=== PATIENT | male | born 1960 | race Caucasian/White ===

== ENCOUNTER 2017-07-12 10:07 | Emergency (ER) | payer BC ==
[2017-07-12 10:35] VITALS: BMI 27.2
--- NOTE | 2017-07-12 11:05 | PDOC ---
History of Present Illness <Gurinder Amaro - Last Filed: 07/12/17 15:02> - General History Source: Patient Exam Limitations: No Limitations - History of Present Illness Initial Comments: 07/12/17 11:52 Patient is a 56 year old male with a significant past medical history of Diabetes who presents to the ED with complaints of left sided flank pain that began yesterday afternoon. Patient reported left sided flank pain began yesterday afternoon while at home and has not shown signs of subsiding. Patient states pain is a localized sharp pain that is rated a 7/10 in intensity. He reports pain increased this morning, stating he almost passed out from the pain . Patient states the pain is intermittent, and comes and goes every 2 to 3 hours. Patient reports intermittent episodes of sweating secondary to left sided flank pain. Denies diet change. No chest pain, SOB. Denies fever, chills. Denies dysuria, constipation, diarrhea. Denies any other symptoms. Allergies: Seasonal allergies Social history: smoker (2 cigarettes per day, 20 years). No alcohol. No illicit Drugs. Surgical history: none PMD: Dr. Cabezas <Al Hilton - Last Filed: 07/12/17 15:38> - General Chief Complaint: Pain, Acute Stated Complaint: LT SIDE/ABD PAIN Time Seen by Provider: 07/12/17 11:03 Past History - Past Medical History Asthma: No Cardiac Disorders: No Diabetes: Yes HTN: Yes Hypercholesterolemia: No Kidney Stones: No - Surgical History Abdominal Surgery: No - Immunization History Immunization Up to Date: Yes - Suicide/Smoking/Psychosocial Hx Smoking Status: Yes Smoking History: Former smoker Have you smoked in the past 12 months: Yes Number of Cigarettes Smoked Daily: 3 Information on smoking cessation initiated: No Hx Alcohol Use: No Drug/Substance Use Hx: No Substance Use Type: None <Gurinder Amaro - Last Filed: 07/12/17 15:02> <Al Hilton - Last Filed: 07/12/17 15:38> - Past Medical History Allergies/Adverse Reactions: Allergies Allergy/AdvReac Type Severity Reaction Status Date / Time No Known Allergies Allergy Verified 07/12/17 10:32 Home Medications: Ambulatory Orders Cyclobenzaprine HCl [Flexeril -] 10 mg PO TID 05/10/13 Enalapril Maleate [Vasotec -] 2.5 mg PO DAILY 05/10/13 Metformin HCl [Riomet] 500 mg PO DAILY 05/10/13 Naproxen [Naprosyn -] 500 mg PO BID 05/10/13 Tamsulosin HCl [Flomax] 0.4 mg PO DAILY #30 capsule 05/10/13 Ondansetron [Zofran *Odt*] 8 mg SL TID #21 od.tablet 07/12/17 Oxycodone HCl/Acetaminophen [Percocet 5-325 mg Tablet] 1 - 2 tab PO Q6H #20 tab MDD 6 07/12/17 Review of Systems - Review of Systems Able to Perform ROS?: Yes Comments:: 07/12/17 11:52 GENERAL/CONSTITUTIONAL: No fever or chills. No weakness. HEAD, EYES, EARS, NOSE AND THROAT: No change in vision. No ear pain or discharge. No sore throat. CARDIOVASCULAR: No chest pain or shortness of breath. RESPIRATORY: No cough, wheezing, or hemoptysis. GASTROINTESTINAL: No nausea, vomiting, diarrhea or constipation. GENITOURINARY: No dysuria, frequency, or change in urination. MUSCULOSKELETAL: +Left sided flank pain. No joint or muscle swelling. No neck or back pain. SKIN: No rash NEUROLOGIC: No headache, vertigo, loss of consciousness, or change in strength/ sensation. ENDOCRINE: No increased thirst. No abnormal weight change. HEMATOLOGIC/LYMPHATIC: No anemia, easy bleeding, or history of blood clots. ALLERGIC/IMMUNOLOGIC: No hives or skin allergy. All Other Systems: Reviewed and Negative <Al Hilton - Last Filed: 07/12/17 15:38> *Physical Exam - Vital Signs Last Vital Signs Temp Pulse Resp BP Pulse Ox 98.1 F 65 18 127/81 100 07/12/17 10:32 07/12/17 10:32 07/12/17 10:32 07/12/17 10:32 07/12/17 10:32 <Gurinder Amaro - Last Filed: 07/12/17 15:02> - Vital Signs Last Vital Signs Temp Pulse Resp BP Pulse Ox 98.1 F 65 18 127/81 100 07/12/17 10:32 07/12/17 10:32 07/12/17 10:32 07/12/17 10:32 07/12/17 10:32 - Physical Exam Comments: 07/12/17 11:52 GENERAL: Awake, alert, and fully oriented, in no acute distress HEAD: No signs of trauma EYES: PERRLA, EOMI, sclera anicteric, conjunctiva clear ENT: Auricles normal inspection, hearing grossly normal, nares patent, oropharynx clear without exudates. Moist mucosa NECK: Normal ROM, supple, no lymphadenopathy, JVD, or masses LUNGS: Breath sounds equal, clear to auscultation bilaterally. No wheezes, and no crackles HEART: Regular rate and rhythm, normal S1 and S2, no murmurs, rubs or gallops ABDOMEN: Soft, nontender, normoactive bowel sounds. No guarding, no rebound. No masses EXTREMITIES: Normal range of motion, no edema. No clubbing or cyanosis. No cords, erythema, or tenderness NEUROLOGICAL: Cranial nerves II through XII grossly intact. Normal speech, normal gait SKIN: Warm, Dry, normal turgor, no rashes or lesions noted. <Al Hilton - Last Filed: 07/12/17 15:38> ED Treatment Course - LABORATORY CBC & Chemistry Diagram: 07/12/17 11:50 07/12/17 11:50 <Gurinder Amaro - Last Filed: 07/12/17 15:02> - LABORATORY CBC & Chemistry Diagram: 07/12/17 11:50 07/12/17 11:50 <Al Hilton - Last Filed: 07/12/17 15:38> Medical Decision Making - Medical Decision Making 07/12/17 15:[address] Schwartz @14:52pm. Dr. Noble personal injury paralegal. Case discussed. <Al Hilton - Last Filed: 07/12/17 15:38> *DC/Admit/Observation/Transfer - Discharge Dispostion Admit: No - Attestations Physician Attestion: 07/12/17 11:05 I, Dr. Gurinder Amaro, attest that this document has been prepared under my direction and personally reviewed by me in its entirety. I further attest, that it accurately reflects all work, treatment, procedures and medical decision -making performed by me. <Gurinder Amaro - Last Filed: 07/12/17 15:02> - Attestations Scribe Attestion: 07/12/17 11:52 Documentation prepared by Al Hilton, acting as biomedical electronics technician for Gurinder Amaro MD/DO. <Al Hilton - Last Filed: 07/12/17 15:38> Diagnosis at time of Disposition: Kidney stone on left side - Discharge Dispostion Disposition: HOME Condition at time of disposition: Good - Prescriptions Prescriptions: Oxycodone HCl/Acetaminophen [Percocet 5-325 mg Tablet] 1 - 2 tab PO Q6H #20 tab MDD 6 Ondansetron [Zofran *Odt*] 8 mg SL TID #21 od.tablet - Referrals Referrals: Sushant Cabezas MD [Primary Care Provider] - Tin Noble MD [Staff Physician] - - Patient Instructions Printed Discharge Instructions: DI for Kidney Stones Additional Instructions: Mr Herbert- Sorry this hurts so bad. Use the percocet for pain, the zofran odt for nausea. Retun to us if any problems. See Dr. Sosa, later today or tomorrow. Call for an appointment for later today or tomorrow. Best- Dr. Gurinder Amaro
[2017-07-12] MEDS ORDERED: SODIUM CHLORIDE 1,000 ML IV STA (11:24)
[2017-07-12] MEDS ORDERED: ONDANSETRON 4 MG/2 ML VIAL IVPUSH ONE (11:24)
[2017-07-12] MEDS ORDERED: KETOROLAC TROMETHAMINE 30 MG/1 ML VIAL IVPUSH ONE (11:24)
[2017-07-12] MEDS ORDERED: morphine CARPU-JECT 4 MG/1 ML DISP.SYRIN IVPUSH ONE (11:24)
[2017-07-12 11:58] LABS: BASOPHIL 0.5 % (0-2.0); EOSINOPHIL 2.6 % (0-4.5); MCH 27.4 pg (25.7-33.7); MCHC 32.7 g/dl (32.0-35.9); MEAN CELL VOLUME 83.9 fl (80-96); NEUTROPHILS 84.3 % (42.8-82.8); PLATELET COUNT 235 K/MM3 (134-434); RDW 13.6 % (11.9-15.9)
[2017-07-12] MEDS ORDERED: KETOROLAC TROMETHAMINE 30 MG/1 ML VIAL ONE (12:15)
[2017-07-12] MEDS ORDERED: morphine CARPU-JECT 4 MG/1 ML DISP.SYRIN ONE (12:15)
[2017-07-12] MEDS ORDERED: ONDANSETRON 4 MG/2 ML VIAL ONE (12:15)
[2017-07-12 12:25] LABS: ALBUMIN 4.2 g/dl (3.4-5.0); ANION GAP 8 (8-16); CALCIUM 8.9 mg/dL (8.5-10.1); CO2 27 mmol/L (21-32); CREATININE 0.6 mg/dL (0.7-1.3); GLUCOSE,RANDOM 189 mg/dL (74-106); SGOT/AST 12 U/L (15-37); SGPT/ALT 31 U/L (12-78)
[2017-07-12 12:26] LABS: ALK PHOS 76 U/L (45-117); BILIRUBIN,TOTAL 0.6 mg/dL (0.2-1.0); INR 1.06 (0.82-1.09); PROTHROMBIN TIME (PATIENT) 11.7 SEC (9.98-11.88); TOT PROT 7.5 g/dl (6.4-8.2)
[2017-07-12 12:51] LABS: URINE APPEARANCE SLCLOUDY; URINE BILIRUBIN NEGATIVE (NEGATIVE); URINE BLOOD 3+ (NEGATIVE); URINE COLOR YELLOW; URINE GLUCOSE (UA) 2+ (NEGATIVE); URINE KETONE NEGATIVE (NEGATIVE); URINE LEUK ESTERASE NEGATIVE (NEGATIVE); URINE NITRITE NEGATIVE (NEGATIVE); URINE PROTEIN NEGATIVE (NEGATIVE); URINE UROBILINOGEN NEGATIVE mg/dL (0.2-1.0)
[2017-07-12 12:55] LABS: URINE MUCUS FEW; URINE RBC 86 /hpf (0-3); URINE WBC 1 /hpf (3-5)
[2017-07-12 16:17] VITALS: BP 122/83; PULSE 69; TEMP 97.8
== END 2017-07-12 15:30 | disposition home or self-care (01) ==
LOC: JER 10:07
PROC: 3E033NZ Introduction of Analgesics, Hypnotics, Sedatives into Peripheral Vein, Percutaneous Approach (ICD-10-PCS; principal; 2017-07-12)
PROC: 3E033GC Introduction of Other Therapeutic Substance into Peripheral Vein, Percutaneous Approach (ICD-10-PCS; 2017-07-12)
PROC: 3E0333Z Introduction of Anti-inflammatory into Peripheral Vein, Percutaneous Approach (ICD-10-PCS; 2017-07-12)
DX: N13.2 Hydronephrosis with renal and ureteral calculous obstruction (principal); I10 Essential (primary) hypertension; E11.9 Type 2 diabetes mellitus without complications; Z87.891 Personal history of nicotine dependence
CPT/HCPCS: 36415; 74176; 80053; 81003; 81015; 85025; 85610; 87086; 99283-25

== ENCOUNTER 2024-07-25 22:16 | Emergency (ER) | payer BC ==
[2024-07-25 22:28] VITALS: BP 143/72; PULSE 105; RESP 18; TEMP 99; BMI 30.9
[2024-07-25] MEDS: LIDOCAINE PATCH REMOVAL MC SCH (23:43)
[2024-07-25] MEDS: LIDOCAINE 4% PATCH TP ONE (23:43)
[2024-07-25] MEDS: ACETAMINOPHEN 500 MG TABLET (FP) PO ONE (23:44)
[2024-07-25] MEDS ORDERED: LIDOCAINE 5% TOPICAL PATCH ONE (23:49)
[2024-07-25] MEDS ORDERED: ACETAMINOPHEN 500 MG TABLET (FP) ONE (23:51)
== END 2024-07-26 01:02 | disposition home or self-care (01) ==
LOC: JER 22:16
DX: R07.89 Other chest pain (principal); R06.02 Shortness of breath; X50.1XXA Overexertion from prolonged static or awkward postures, initial encounter
CPT/HCPCS: 71046-TC-FY; 71101-TC-RT-FY; 99284-25